=== PATIENT | female | born 1985 | race Caucasian/White ===

== ENCOUNTER 2016-10-06 03:07 | Emergency (ER) | payer OTHER ==
[~2016-10-06] VITALS: Ht 175.3 cm; Wt 53.6 kg
[~2016-10-06 03:07] MED LIST: Hydrocodone/Acetaminophen PO; Ibuprofen PO; PREN1TAB47 PO
[2016-10-06 03:15] VITALS: BP 127/89; PULSE 78; RESP 16; O2SAT 100
--- NOTE | 2016-10-06 03:28 | ED.REPORT ---
HPI-Abd Pain F Under 40 Date of Service Oct 06, 2016 ED Provider: Dr. Mitchell 31 y/o female with a hx of remote UTI and recent history of pneumonia presents to the ED complaining of dysuria and urinary frequency, onset yesterday with hematuria, onset 2 hours ago. She has had similar sxs once before which was diagnosed as a UTI. She denies nausea, vomiting, fever, chills and rash. She denies history of pyelonephritis or kidney stones. Pt reports experiencing diarrhea after taking Sulfa medications and facial edema and hives after taking Penicillin. There are no other complaints at this time. Nursing Notes Stated Complaint: POSSIBLE BLADDER INFECTION Chief Complaint: Female Abdominal Pain Nursing Notes Reviewed: Yes Allergies: Coded Allergies: Penicillins (Verified Allergy, Mild, Hives, 06/01/14) all over body rash/hives Uncoded Allergies: CEPHALASPORINS (Allergy, Unknown, 10/06/16) Scheduled Doxycycline Monohyd (Doxycycline Monohyd) 100 Mg Tablet 100 MG PO BID Vit/Fe Fumarate/Fa-Expunged Drug, Do (-Expunged Drug, Do Not Renew!) 1 Tab Tablet 1 TAB PO DAILY Scheduled PRN ([Hydrocodone/Acetaminophen]) 1 TAB TABLET 1-2 TAB PO Q4H PRN PRN For Pain ([Ibuprofen]) 800 MG TABLET 800 MG PO Q6H PRN PRN For Pain Phenazopyridine (Phenazopyridine) 200 Mg Tablet 200 MG PO TID PRN PRN dysuria General Time Seen by MD: 03:28 Chief Complaint Dysuria Hx Obtained From: Patient Arrived By: Walk-in Sudden in Onset?: No Onset Occurred: Yesterday Symptom Duration: Since onset Progression since Onset: Constant Radiation: : Does not radiate Severity: Current: No pain currently Severity: Maximum: No pain Recent Healthcare: No recent doctor visit Past Medical History Past Medical History Healthy hx UTI hx pneumonia Past Surgical History none reported Smoking History Never Smoker Social History Alcohol Use: "Social" Drug Use: Denies drug use Ambulatory Status Independent Review of Systems Constitutional: Denies: Chills, Fever GI: Denies: Abdominal pain, Nausea, Vomiting Female: Reports: Dysuria, Hematuria, Urinary frequency Complete sys rev & neg: except as marked. Skin: Denies Rash Physical Exam Initial Vital Signs Vital Signs (First) Date Time Temp Pulse Resp B/P Pulse Ox O2 Delivery O2 Flow Rate FiO2 10/06/16 03:15 35.9 78 16 127/89 100 Room Air Initial VS: Reviewed, Vital signs normal Head / Eyes: Atraumatic, Normocephalic, PERRL ENT: Mucous membranes moist, Conjunctiva normal, No scleral icterus Neck: Supple, Full range of motion Skin: Warm, Dry, No cyanosis Neurologic: Alert, Oriented, Nonfocal Psychiatric: Mood/affect normal, Behavior normal, Normal thought content General/Constitutional: Awake, Alert, No acute distress, Well appearing, Cooperative, Not toxic appearing Respiratory / Chest: No respiratory distress, No retractions Cardiovascular: Heart rate NL, Peripheral circulation NL Abdomen: Atraumatic, Soft, Non-tender Back: Atraumatic, Full range of motion, No CVA tenderness Female Genitourinary: Exam deferred Upper Extremity / MS: Atraumatic, Full range of motion Lower Extremity / Pelvis / MS: Atraumatic, Full range of motion Interpretation & Diagnostics Lab Results Interpretation Test 10/06/16 03:20 Urine Color Straw (YELLOW) Urine Appearance Hazy (CLEAR,HAZY) Urine pH 6.5 (5.0-8.0) Urine Specific [place] 1.002 (1.003-1.035) Urine Protein Negativemg/dL (NEG,TRACE) Urine Glucose (UA) Negativemg/dL (NEGATIVE) Urine Ketones Negativemg/dL (NEGATIVE) Urine Occult Blood Large (NEGATIVE) Urine Nitrite Negative (NEGATIVE) Urine Bilirubin Negative (NEGATIVE) Urine Urobilinogen Normalmg/dL (NORMAL) Urine Leukocyte Esterase Small (NEGATIVE) Urine RBC 0-2/hpf (0-2) Urine WBC 11-50/hpf (0-5) Urine Epithelial Cells Occasional/hpf (NONE-MOD) Urine Crystals None seen (NONE SEEN) Urine Bacteria Moderate/hpf (NONE-FEW) Urine Hyaline Casts None/lpf (NONE) Urine Granular Casts None seen (NONE SEEN) Urine Waxy Casts None seen (NONE SEEN) Urine Red Blood Cell Casts None seen (NONE SEEN) Urine White Blood Cell Casts None seen (NONE SEEN) Urine Mucus None seen (None Seen) Urine Trichomonas None seen (NONE SEEN) Urine Yeast None (NONE SEEN) Urinalysis Comment None Urine Culture Reflexed Indicated Hold Urine Received (Received) Re-Eval/Medical Decision Med Decision/Clinical Course Med Decision/Clinical Course: 31-year-old prior urinary tract infection presents with similar symptoms, with the addition of blood in her urine. She is allergic to most antibiotics classes that would be useful. No exposure to doxycycline on. Home with doxycycline twice a day for five days, and Pyridium. Re-Evaluation/Progress : Time of Eval: 04:15 Re-Evaluation/Progress Note: Pt rechecked. Discussed diagnosis and plan to discharge. Informed the pt Pt understands and agrees with plan. F/U instructions and RTER warning given. All questions addressed. Counseled Regarding: Diagnosis, Need for follow-up, When/why to return to ED Discharge & Departure Primary Impression: Hemorrhagic cystitis Disposition: Home Discharge Condition All VS Reviewed: Yes Condition: Stable Patient Instructions: Acute Urinary Retention in Women (ED) Additional Instructions: Doxycycline twice daily with a full glass of water for five days. Pyridium three times daily if needed for discomfort. Pyridium will turn your urine a bright [place] color. This is normal. Continued to drink plenty of fluids. Follow-up with your doctor in the office. Return if any immediate issues. Referrals: Heriberto Macias MD (PCP) Scribe Attestation Portions of this note were transcribed by Josh Warren and Raji Mosher. I , personally performed the history, physical exam and medical decision-making;I reviewed and confirmed the accuracy of the information in the transcribed note. Signed by Josh Warren and Lore Judd. 10/06/16 0420. copies to: Heriberto Macias MD, Christopher W MD Oct 06, 2016 03:28 Josh Warren Oct 06, 2016 03:32 RAJI MOSHER Oct 06, 2016 04:27
[2016-10-06 04:12] LABS: APPEARANCE,URINE HAZY (CLEAR,HAZY); COLOR,URINE STRAW (YELLOW); OCCULT BLOOD,URINE LARGE (NEGATIVE); PH,URINE 6.5 (5.0-8.0); UROBILINOGEN,URINE NORMAL (NORMAL)
[2016-10-06] MEDS ORDERED: Phenazopyridine 97.5 mg Tablet PO ONE (04:15)
[2016-10-06] MEDS ORDERED: PHEN-777 PO (04:17)
[2016-10-06] MEDS ORDERED: DOXY-232 PO (04:17)
[2016-10-06 04:34] VITALS: BP 127/89; PULSE 78; RESP 16; O2SAT 100
== END 2016-10-06 04:34 | disposition home or self-care (01) ==
LOC: SED 03:07
DX: N30.90 Cystitis, unspecified without hematuria (principal); Z88.0 Allergy status to penicillin; Z88.1 Allergy status to other antibiotic agents